=== PATIENT | male | born 1990 | race Caucasian/White ===

== ENCOUNTER 2017-07-11 18:02 | Emergency (ER) | payer OTHER ==
[2017-07-11 18:16] VITALS: BP 130/87; PULSE 98; TEMP 97.8
[2017-07-11] MEDS ORDERED: SODIUM CHLORIDE 1,000 ML IV ONE (18:32)
--- NOTE | 2017-07-11 18:38 | PDOC ---
History of Present Illness <Newton Hernandez - Last Filed: 07/11/17 18:39> - General History Source: Patient, Parent(s) Exam Limitations: No Limitations <Nito Guillen - Last Filed: 07/11/17 19:01> - General Chief Complaint: Syncope/Near Syncope Stated Complaint: FAINTED Time Seen by Provider: 07/11/17 18:16 - History of Present Illness Initial Comments: 07/11/17 18:50 The patient is a 27 year old male, with a significant past medical history of possible Chron's (s/p endoscopy/colonoscopy for GI bleed), who presents to the emergency department s/p syncopal episode earlier this afternoon. The patient states he has been feeling lethargic all day and only woke up to shower and help his dad manage their sick pet. Patient reports he was helping lift his dog , when he began to feel nauseous, lightheaded, and his vision began to blur, eventually going white, and patient passed out. Patient denies any head trauma, neck or back pain, dizziness, or other injuries. Patient reports a history of one syncopal episode in his teens s/p getting up too quickly, he denies any exertional syncope. He reports chills, but denies any recent fever, cough, congestion, vision changes or headache. He denies any abdominal pain, vomiting, diarrhea, constipation, melena, or hematochezia. He denies any dysuria, hematuria, frequency, or urgency. He denies any chest pain, shortness of breath , hemoptysis, diaphoresis, palpitations, or lower extremity edema. As per mother , patient has had increased stress from work and has not really had any days off , and is also busy dealing with their ill dog. Patient reports decreased appetite secondary to stress. He denies any recent travel or sick contacts. Allergies: NKDA Past Surgical History: None reported Social History: Non smoker. No ETOH or recreational drug use. PCP: Dr. Claire([facility]) (Nito Guillen) Past History - Past Medical History COPD: No GI Disorders: Yes - Immunization History Immunization Up to Date: Yes - Suicide/Smoking/Psychosocial Hx Smoking History: Never smoked Hx Alcohol Use: No <Newton Hernandez - Last Filed: 07/11/17 18:39> <WilmerLiliwestblanca - Last Filed: 07/11/17 19:01> - Past Medical History Allergies/Adverse Reactions: Allergies Allergy/AdvReac Type Severity Reaction Status Date / Time No Known Allergies Allergy Verified 07/11/17 18:08 Home Medications: Ambulatory Orders NK [No Known Home Medication] 07/11/17 Review of Systems <Newton Hernandez - Last Filed: 07/11/17 18:39> - Review of Systems Able to Perform ROS?: Yes <GuillenLilimckay - Last Filed: 07/11/17 19:01> - Review of Systems Comments:: 07/11/17 18:51 CONSTITUTIONAL: Present: Lethargy, Loss of Appetite No reported: Fever, Diaphoresis, Generalized Weakness, Malaise HEENT: No reported: Rhinorrhea, Nasal Congestion, Throat Pain, Throat Swelling, Difficulty Swallowing, Mouth Swelling, Ear Pain, Eye Pain CARDIOVASCULAR: Present: Syncope, Lightheadedness No reported: Chest Pain, Palpitations, Irregular Heart Rate, Peripheral Edema RESPIRATORY: No reported: Cough, Shortness of Breath, SOB with Exertion, Orthopnea, Wheezing , Stridor, Hemoptysis GASTROINTESTINAL: No reported: Abdominal pain, Abdominal Distension, Nausea, Vomiting, Diarrhea, Constipation, Melena, Hematochezia GENITOURINARY: No reported: Dysuria, Frequency, Urgency, Hesitancy, Flank Pain, Genital Pain MUSCULOSKELETAL: No reported: Myalgia, Arthralgia, Joint Swelling, Back pain, Neck Pain SKIN: No reported: Rash, Itching, Pallor HEMEATOLOGIC/IMMUNOLOGIC: No reported: Easy Bleeding, Easy Bruising, Lymphadenopathy, Frequent infections ENDOCRINE: No reported: Unexplained Weight Gain, Unexplained Weight Loss, Heat Intolerance , Cold Intolerance NEUROLOGIC: No reported: Headache, Focal Weakness, Paresthesias, Vertigo, Lightheadedness, Unsteady Gait, Seizure, Mental Status Changes, Incontinence PSYCHIATRIC: No reported: Anxiety, Depression (Nito Guillen) *Physical Exam <Newton Hernandez - Last Filed: 07/11/17 18:39> <WilmerLilimckay - Last Filed: 07/11/17 19:01> - Vital Signs Last Vital Signs Temp Pulse Resp BP Pulse Ox 97.8 F 98 H 15 130/87 100 07/11/17 18:07 07/11/17 18:07 07/11/17 18:07 07/11/17 18:07 07/11/17 18:07 - Physical Exam Comments: 07/11/17 18:51 GENERAL: The patient is awake, alert, and fully oriented, Nontoxic - in no acute distress. HEAD: Normocephalic, atraumatic. EYES: extraocular movements intact, sclera anicteric, conjunctiva clear. ENT: + Mildly dry mucous membranes. Normal voice. NECK: Normal range of motion, supple LUNGS: Breath sounds equal, clear to auscultation bilaterally. No wheezes, no rhonchi, no rales. HEART: Regular rate and rhythm, without murmur, rub or gallop. ABDOMEN: Soft, nontender, normoactive bowel sounds. No guarding, no rebound.No CVA tenderness EXTREMITIES: Normal range of motion, no edema. No clubbing or cyanosis. No cords , erythema, or tenderness. NEUROLOGICAL: No facial asymmetry, Normal speech, PSYCH: Normal mood, normal affect. SKIN: Warm, Dry, normal turgor. Back: No midline tenderness to the cervical, thoracic or lumbar spine Musculoskelatal: FROM of b/l shoulders, elbows, wrist. FROM of hips, knees, ankles - No signs of ecchymosis, erythema, or crepitus noted on palpation extremities, chest wall, clavicals, ribs, back. (Nito Guillen) Heart Score/ECG Review <Newton Hernandez - Last Filed: 07/11/17 18:39> <Nito Guillen - Last Filed: 07/11/17 19:01> - ECG Impressions Comment:: 07/11/17 18:37 Twelve-lead EKG was performed and reviewed by me. There is normal sinus rhythm with a normal rate. rightward axis no signs of qt prolongation or brugada (Newton Hernandez) ED Treatment Course - LABORATORY CBC & Chemistry Diagram: 07/11/17 18:40 07/11/17 18:40 <Nito Guillen - Last Filed: 07/11/17 19:01> Medical Decision Making <Newton Hernandez - Last Filed: 07/11/17 18:39> <Nito Guillen - Last Filed: 07/11/17 19:01> - Medical Decision Making 07/11/17 18:32 27y M hx of ?crohns dz (being worked up currently by GI) presents with episode of syncope - seems like pt having many stressors recently working alot, sick dog , etc, had syncopized after getting up from laying down. denies any recent GIB , cp, sob, headache, back pain abd pain, neck pain. pts exam unreamrkable beside mildly dry mm. suspect possible orthostatic hyotension will r/o anemia, metabolic dernagement, arythmia will give fluids will reassess A portion of this note was documented by scribe services under my direction. I have reviewed the details of the note, within reason, and agree with the documentation with the following case summary and management plan written by me (Newton Hernandez) *DC/Admit/Observation/Transfer <Newton Hernandez - Last Filed: 07/11/17 18:39> <Nito Guillen - Last Filed: 07/11/17 19:01> - Discharge Dispostion Condition at time of disposition: Good - Referrals Referrals: Clyde Claire MD [Primary Care Provider] - - Patient Instructions - Post Discharge Activity - Attestations Scribe Attestion: 07/11/17 18:51 Documentation prepared by Nito Guillen, acting as registered medical transcriptionist for Newton Hernandez MD. (Nito Guillen)
[2017-07-11 19:07] LABS: BASO % 0.2 % (0-2.0); EOS % 0.2 % (0-4.5); MCH 27.7 pg (25.7-33.7); MCHC 33.9 g/dl (32.0-35.9); MEAN CELL VOLUME 81.8 fl (80-96); MEAN PLT VOLUME 7.7 fl (7.5-11.1); NEUT % 85.2 % (42.8-82.8); PLATELET COUNT 336 K/MM3 (134-434); RDW 12.6 % (11.9-15.9); WHITE BLOOD COUNT 8.3 K/mm3 (4.0-10.8)
[2017-07-11 19:11] LABS: ALBUMIN 3.8 g/dl (3.5-5.0); ALK PHOS 78 U/L (32-92); ANION GAP 7 (8-16); BILIRUBIN,TOTAL 0.6 mg/dl (0.2-1.0); CALCIUM 8.8 mg/dl (8.4-10.2); CO2 27 mmol/L (22-28); CREATININE 0.8 mg/dl (0.6-1.3); GLUCOSE,RANDOM 118 mg/dl (74-106); SGOT/AST 20 U/L (10-42); SGPT/ALT 9 U/L (10-40); TOT PROT 7.2 g/dl (6.4-8.3)
--- NOTE | 2017-07-11 19:21 | PDOC ---
*Physical Exam - Vital Signs Last Vital Signs Temp Pulse Resp BP Pulse Ox 97.8 F 98 H 15 130/87 100 07/11/17 18:07 07/11/17 18:07 07/11/17 18:07 07/11/17 18:07 07/11/17 18:07 ED Treatment Course - LABORATORY CBC & Chemistry Diagram: 07/11/17 18:40 07/11/17 18:40 - ADDITIONAL ORDERS Additional order review: Laboratory Results 07/11/17 18:40 Sodium 137 Potassium 3.7 Chloride 103 Carbon Dioxide 27 Anion Gap 7 L BUN 13 Creatinine 0.8 Creat Clearance w eGFR > 60 Random Glucose 118 H Calcium 8.8 Total Bilirubin 0.6 AST 20 ALT 9 L Alkaline Phosphatase 78 Total Protein 7.2 Albumin 3.8 07/11/17 18:40 RBC 5.45 MCV 81.8 MCHC 33.9 RDW 12.6 MPV 7.7 Neutrophils % 85.2 H Lymphocytes % 5.7 L Monocytes % 8.7 Eosinophils % 0.2 Basophils % 0.2 Progress Note - Progress Note Progress Note: Care of this patient received from Dr. Hernandez Laboratory evaluation shows no significant abnormality. Results discussed with the patient and his mother. He will be discharged with instructions to drink plenty of fluids and avoid strenuous activity for the next few days. He should follow-up with his general doctor within 48 hours. He should return to the emergency room if he has lightheadedness, shortness of breath, palpitations. *DC/Admit/Observation/Transfer Diagnosis at time of Disposition: Vasovagal syncope - Discharge Dispostion Disposition: HOME Condition at time of disposition: Stable - Referrals Referrals: Clyde Claire MD [Primary Care Provider] - 3 days - Patient Instructions Printed Discharge Instructions: DI for Syncope in Adults (Fainting) Additional Instructions: drink plenty of water return to ER if you have lightheadedness, difficulty breathing or palpitations followup with your doctor within 3 days - Post Discharge Activity
--- NOTE | 2017-07-12 08:10 | EKG ---
Test Reason : Blood Pressure : / mmHG Vent. Rate : 097 BPM Atrial Rate : 097 BPM P-R Int : 148 ms QRS Dur : 090 ms QT Int : 324 ms P-R-T Axes : 079 091 083 degrees QTc Int : 411 ms POOR DATA QUALITY, INTERPRETATION MAY BE ADVERSELY AFFECTED NORMAL SINUS RHYTHM RIGHTWARD AXIS BORDERLINE ECG NO PREVIOUS ECGS AVAILABLE Confirmed by CAMACHO CHAVARRIA MD ([id number]) on 07/12/2017 8:09:33 AM Referred By: NADEGE Confirmed By:CAMACHO CHAVARRIA MD
== END 2017-07-11 19:59 | disposition home or self-care (01) ==
LOC: FER 18:02
PROC: 3E0337Z Introduction of Electrolytic and Water Balance Substance into Peripheral Vein, Percutaneous Approach (ICD-10-PCS; principal; 2017-07-11)
DX: R55 Syncope and collapse (principal)
CPT/HCPCS: 36415; 80053; 85025; 93005; 99284-25

== ENCOUNTER 2020-02-22 05:10 | Day surgery (SDC) | payer OTHER ==
[2020-02-19 10:36] VITALS: BMI 24.3
[2020-02-22 11:09] VITALS: TEMP 97.7
[2020-02-22 12:02] VITALS: BP 118/73; PULSE 63
== END 2020-02-22 12:02 | disposition home or self-care (01) ==
LOC: JASU-ENDO 05:10
PROVIDERS: ATTEND Internal Medicine Gastroenterology
PROC: 0DJD8ZZ Inspection of Lower Intestinal Tract, Via Natural or Artificial Opening Endoscopic (ICD-10-PCS; principal; 2020-02-22 11:00)
DX: K50.00 Crohn's disease of small intestine without complications (principal); R19.5 Other fecal abnormalities